=== PATIENT | female | born 1960 | race Caucasian/White ===

== ENCOUNTER → 2016-04-17 | Outpatient (CLI) | payer OTHER, BC ==
[2016-04-17 13:28] LABS: BLOOD UREA NITROGEN 17 mg/dL (7-22); CREATININE 0.8 mg/dL (0.50-1.20); EST GLOMERULAR FILTRATION > 60 (>60 ml/min/1.73m(2))
--- NOTE | 2016-04-20 08:58 | DI ---
MRI PELVIS SCAN WITHOUT AND WITH IV CONTRAST, 04/17/2016 1:10 PM: Clinical History: Lumbosacral plexopathy. Previous Exam: None at this facility. Technique: Axial and coronal pre and post contrast T1 weighted; axial and coronal T2 weighted fat sat urated scans. 20 mL of 0.5 mmol/mL OptiMARK was injected IV. The lumbar disc spaces at L4-5 and L5-S1 are normal. Both sciatic nerves are visualized from the sacr al region to inferior to the pelvis. No pelvic mass is identified and there is no abnormality of eith er sciatic nerve or the piriformis muscle. No enhancing lesion is identified. There are 2 small cysts arising from the left ovary and the smaller lesion measures 10 mm in diameter and the larger cyst me asures 15 mm in diameter. The uterus and right ovary are not visualized. Readin. Normal MRI scan without and with IV contrast of the lumbosacral plexus in the pelvis. 2. There is a 10 mm and a 15 mm cyst of the left ovary. The patient is status post hysterectomy. The right ovary is not visualized.
== END ==
LOC: MRI 13:07
PROVIDERS: ATTEND Neurological Surgery
DX: G54.1 Lumbosacral plexus disorders (principal); N83.202 Unspecified ovarian cyst, left side; Z01.812 Encounter for preprocedural laboratory examination
CPT/HCPCS: 72197; 82565; 84520; A9579

== ENCOUNTER → 2016-07-14 | Outpatient (CLI) | payer BC ==
[2016-07-14 17:29] LABS: EST GLOMERULAR FILTRATION > 60 (>60 ml/min/1.73m(2))
== END ==
LOC: LAB 17:03
PROVIDERS: ATTEND Neurological Surgery
DX: Z01.812 Encounter for preprocedural laboratory examination (principal); R51 Headache
CPT/HCPCS: 36415; 82565; 84520

== ENCOUNTER → 2016-07-15 | Outpatient (CLI) | payer BC, OTHER ==
--- NOTE | 2016-07-15 09:01 | DI ---
MRI BRAIN SCAN WITHOUT AND WITH IV CONTRAST, 07/15/2016 7:50 AM: Clinical History: Head pain. Previous Exam: None at this facility. Sequences: Axial and sagittal T1 pre contrast and axial and coronal post contrast; axial T2 and FLAIR . Diffusion weighted images with ADC mapping are also performed. 19 mL of ProHance (279.3 mg/mL) was injected IV. The 4th, 3rd, and lateral ventricles are of normal size, shape, position, and contour for this patien t's age. There are no focal areas of abnormally increased or decreased signal intensity within the br ain parenchyma. There is an 8 x 8 x 10 mm tumor arising from the inferior aspect of the left side of the tentorium adjacent to the left transverse sinus and posterior to the left petrous pyramid. On the noncontrast T1 weighted scans, this lesion is isointense to the brain parenchyma. It is well-defined on the T2-weighted sequence as a hypointense lesion. With contrast, this shows marked enhancement an d it represents a small meningioma. No en plaque meningioma is present. There is no mass effect or ed annette involving the left cerebellar hemisphere. No other abnormal enhancing lesion is present. There is moderate cerebral atrophy. Diffusion weighted imaging with ADC mapping is normal. There are no extra cerebral mantels or shift of the midline structures. The paranasal sinuses are normal. Readin. There is an 8 x 8 x 10 mm meningioma arising from the inferolateral margin of the left tentorium just posterior to the petrous pyramids and medial to the transverse sinus. There is no associated maia ma or mass effect involving the cerebellar hemisphere. 2. Moderate cerebral atrophy. No ischemic disease is noted. 3. Diffusion weighted imaging with ADC mapping is normal.
== END ==
LOC: MRI 07:47
PROVIDERS: ATTEND Neurological Surgery
DX: R51 Headache (principal); D32.0 Benign neoplasm of cerebral meninges; G31.89 Other specified degenerative diseases of nervous system
CPT/HCPCS: 70553

== ENCOUNTER → 2016-09-02 | Outpatient (CLI) | payer OTHER, BC ==
--- NOTE | 2016-09-03 00:11 | DI ---
MRI CERVICAL SPINE W/O CN,09/02/2016 3:55 PM: Clinical History: Neck pain Previous Exam: None at this facility. Findings: Multiplanar MR images are obtained through the cervical spine without contrast, and demonstrate anato julio alignment without fractures. Vertebral body height is preserved. The spinal cord descends normall y with normal course, caliber and signal characteristics. The posterior fossa is unremarkable. The major vascular flow voids are unremarkable. Limited evaluation of the thyroid is unremarkable. Individual intervertebral disc spaces: C2/3: Small broad-based disc bulge without significant stenosis. C3/4: There is a broad-based disc bulge with uncovertebral joint osteophytes contributing to mild rig ht neuroforaminal narrowing. C4/5: There is disc desiccation and a broad-based disc bulge without significant stenosis. C5/6: There is disc desiccation and a broad-based disc bulge with some uncovertebral joint osteophyte s contributing to mild right neuroforaminal narrowing. C6/7: There is a broad-based disc bulge with some mild facet hypertrophy causing no significant centr al canal nor neural foraminal narrowing. C7/T1: No significant stenosis. Impression: C3/4: There is a broad-based disc bulge with uncovertebral joint osteophytes contributing to mild rig ht neuroforaminal narrowing. C4/5: There is disc desiccation and a broad-based disc bulge without significant stenosis. C5/6: There is disc desiccation and a broad-based disc bulge with some uncovertebral joint osteophyte s contributing to mild right neuroforaminal narrowing. C6/7: There is a broad-based disc bulge with some mild facet hypertrophy causing no significant centr al canal nor neural foraminal narrowing.
== END ==
LOC: MRI 15:51
PROVIDERS: ATTEND Neurological Surgery
DX: M54.2 Cervicalgia (principal); M47.22 Other spondylosis with radiculopathy, cervical region; M50.321 Other cervical disc degeneration at C4-C5 level; M50.122 Cervical disc disorder at C5-C6 level with radiculopathy; M50.323 Other cervical disc degeneration at C6-C7 level
CPT/HCPCS: 72141

== ENCOUNTER 2016-11-08 16:20 | Emergency (ER) | payer BC, OTHER ==
[2016-11-08] MEDS ORDERED: NORMAL SALINE 10 ML SYRINGE FLUSH IVP PRN (16:31)
[2016-11-08] MEDS ORDERED: EPINEPHrine Inj (1:1,000) 1 mg/ml amp IM ONE (16:31)
[2016-11-08] MEDS ORDERED: Sodium Chloride 0.9% 1,000 ML PRIMARY IV ONE (16:31)
[2016-11-08] MEDS ORDERED: methylPREDNISolone 125 MG/2 ML VIAL IVP ONE (16:31)
[2016-11-08] MEDS ORDERED: diphenhydrAMINE 50 MG/1 ML VIAL IVP ONE (16:32)
[2016-11-08] MEDS ORDERED: Famotidine Inj 20 MG in Normal Saline Flush 10 ML IVP ONE (16:33)
[2016-11-08 17:01] VITALS: RESP 18; TEMP 96.8
--- NOTE | 2016-11-08 17:56 | PDOC ---
Allergy Symptoms HPI - General Chief Complaint: Allergic Reaction/Anaphylaxis Stated Complaint: bee sting Date Seen by Provider: 11/08/16 Time Seen by Provider: 16:25 Source: POSITIVE: Patient, Spouse Exam Limitations: POSITIVE: No limitations Nurse's Notes Reviewed & Considered: Yes - History of Present Illness Initial Comments: 50-year-old female. 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 She states that she developed diffuse pruritus and shortly thereafter developed urticaria to her back abdomen chest and proximal extremities. She states that she had the sensation of "my stung swelling ". Patient states that she has had 2 "anaphylactic reactions "of uncertain etiology; patient states she had these episodes when she was "under stress. She has no known allergies. She states he 's been stung by bees before and has never had this problem. She denies any wheezing or shortness of breath. Body Location Affected: REPORTS: Upper Extremity (L), Upper Extremity (R), Lower Extremity (L), Lower Extremity (R), Chest, Abdomen, Back Timing: REPORTS: Abrupt Duration: 1 hour Severity: Moderate Quality: REPORTS: Other (Patient denies any discrete pain, although she does complain of diffuse itching) Associated Symptoms: REPORTS: Skin Rash (Urticaria to torso and proximal extremities), Itching, Swelling ("My tongue feels swollen "). DENIES: Mild Shortness of Breath, Mod. Shortness of Breath, Sev. 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 DIRECTOR Any Prior Injuries Related to Current Complaint?: No - Patient Home Medications Home Medications: Home Medications Estradiol 1 tab PO DAILY #90 tab 06/18/16 Levothyroxine Sodium [Synthroid] 175 mcg PO DAILY #90 tab 06/18/16 Diphenhydramine HCl [Benadryl Allergy] 25 mg PO PRN 11/08/16 - Patient Allergies Allergies/Adverse Reactions: Allergies Allergy/AdvReac Type Severity Reaction Status Date / Time No Known Allergies Allergy Verified 11/08/16 16:29 Past Medical History - heen HEENT History: Denies History Cardiovascular History: Denies History Respiratory History: Denies History Gastrointestinal History: Denies History Genitourinary History: Denies History Endocrine History: Denies History Musculoskeletal History: Back Injury Prosthesis or Implant: No Neurological History: Motion Sickness Blood Disorders: Denies History Psychiatric History: Denies History History of Sexually Transmitted Diseases: No Female Reproductive History: Denies History, Hysterectomy Cancer History: Other (please comment) Cancer Treatment / Date(s) of Treatment: 2004 In Past Year Been Physically Harmed or Verbally Threatened: No History of MDRO: No History of Other Communicable Diseases: No Tobacco Use: Never Smoker Alcohol Use: Rarely Substance Use Type: None Past Medical History Reviewed: Reviewed - No Changes ROS - Limitations ROS Limitations: No Limitations Constitution: REPORTS: Denies Symptoms Cardiovascular: REPORTS: Denies Cardiac Symptoms Respiratory: REPORTS: Denies Resp Symptoms Neurological: REPORTS: Denies Neuro Symptoms Gastrointestinal: REPORTS: Denies GI Symptoms Endocrine: REPORTS: Denies Symptoms Musculoskeletal: REPORTS: Denies MS Symptoms Genitourinary: REPORTS: Denies Symptoms Eyes: REPORTS: Denies Symptoms ENT: REPORTS: Tongue Swelling Skin: REPORTS: Skin Lesions (Urticaria to chest back abdomen and proximal extremities) Lympathic: REPORTS: Denies Lympathic Symptoms Immunologic: POSITIVE: Denies Symptoms Psychiatric: POSITIVE: Denies Psych Symptoms Allergy Symptoms Physical Exam - General Appearance General Appearance: POSITIVE: Alert, Cooperative, No Acute Distress, No Evidence of Trauma - HEENT Head / Face: POSITIVE: Atraumatic, Normal Inspection, No Facial Swelling Eyes: POSITIVE: Inspection Normal, PERRL, EOM's Intact, Eyelids Uninjured, Conjunctivae Uninjured, No Nystagmus, No Globe Trauma, Sclera Normal, Normal Corneal Inspection Ears: POSITIVE: Ears Normal Inspection, TM Normal Inspection, Auricle Normal, External Canal Normal Nose: POSITIVE: Inspection Normal, No Apparent Trauma, Nares Normal, No CSF Leak Oropharynx: POSITIVE: External Inspection Nml, Pharynx Inspect. Nml (No apparent swelling of the throat), Airway Intact (No difficulty breathing), Voice Normal, Moist Mucous Membranes, No Oral Injury, Lips Normal, Gums Normal, No Drooling, No Thrush, Normal Gag Reflex, Other (Patient states she feels like her "tongue is swelling", but tongue is not grossly swollen on examination) Dental: POSITIVE: No Dental Injury - Pupils Pupil Size: 3 mm: Bilateral (PERRLA) - Neck Neck: POSITIVE: Normal Inspection, No Apparent Injury - Respiratory Respiratory: POSITIVE: No Respiratory Distress, Breath Sounds Normal, Other (No wheezing or respiratory distress) - Cardiovascular Cardiovascular: POSITIVE: Regular Rate and Rhythm, Heart Sounds Normal, Equal Pulses, Strong Pulses Peripheral Pulses: Radial (R): 2+, Radial (L): 2+ - Abdomen Abdomen: Soft: (All Quadrants), Normal Bowel Sounds: (All Quadrants), Denies Tenderness: (All Quadrants), No Splenomegaly: (All Quadrants), No Hepatomegaly: (All Quadrants), No Guarding: (All Quadrants), No Rebound: (All Quadrants), No Palpable Pulse: (All Quadrants), No Palpabale Mass: (All Quadrants), No Distention: (All Quadrants), No Rigidity: (All Quadrants) - Skin Skin: POSITIVE: Other (Diffuse urticaria to torso and proximal extremities) - Extremities Extremity: Non-Tender: (All Extremities), Normal ROM: (All Extremities), Normal Inspection: (All Extremities) Additional Extremities Details: Prominent erythema around sting site, local histamine reaction, left posterior calf. 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 Patient has much less pruritus. Chest remains clear and patient is in no respiratory distress. No swelling of the throat. Status: POSITIVE: Improved, Re-Examined - Consult Counseled: POSITIVE: Patient, Family ( sent to the pharmacy for an EpiPen injector) - Syncope If Syncope - Was EKG Completed: No Patient Care Time - Estimated PCT Patient Care Time (In Minutes): 60 Vital Signs - Recent Vital Signs Vital Signs: Vital Signs (Last 8 hours) Temp Pulse Resp BP Pulse Ox 11/08/16 16:51 96.8 F 88 18 127/91 90 - VS Reviewed Vital Signs Reviewed: Yes Discharge Clinical Impression: Allergic urticaria Discharge Disposition: Other (Care transferred to Dr. Tim, who comes on duty at 1800) Condition: Fair Patient Instructions Given at Discharge: Urticaria (ED), Allergies (ED)
--- NOTE | 2016-11-08 18:41 | PDOC ---
Transfer of Care - Care Accepted Time Care Transferred: 18:00 Report from Transferring Physician Received: Yes MDM / ED Course: Patient received benadryl, solumedrol, epinephrine, and pepcid. Her hives responded quickly and resolve, the swelling in her tounge and throat were slower to resolve. At the time I took over care at 1800 hrs her symptoms had resolved. She was observed for another hour and had no further symptoms. Home Medications: Home Medications Estradiol 1 tab PO DAILY #90 tab 06/18/16 Levothyroxine Sodium [Synthroid] 175 mcg PO DAILY #90 tab 06/18/16 Diphenhydramine HCl [Benadryl Allergy] 25 mg PO PRN 11/08/16 Allergies/Adverse Reactions: Allergies No Known Allergies Allergy (Verified 11/08/16 16:29) Vital Signs Reviewed: Yes Nurse's Notes Reviewed & Considered: Yes - Expected Patient Outcome Tentative Impression of Patient: Wasp sting allergy. Expected Disposition: POSITIVE: Home - Re-Evaluation of Patient Re-Examine Time:: 18:40 Disposition of Patient: POSITIVE: Discharged Counseled: POSITIVE: Patient, RE: DX, RE: Need for F/U Patient Care Time - Estimated PCT Patient Care Time (In Minutes): 10 Vital Signs - Recent Vital Signs Vital Signs: Vital Signs (Last 8 hours) Temp Pulse Resp BP Pulse Ox 11/08/16 16:51 96.8 F 88 18 127/91 90 - VS Reviewed Vital Signs Reviewed: Yes Discharge Clinical Impression: Allergic urticaria Discharge Disposition: Discharged to Home Condition: Fair Patient Instructions Given at Discharge: Urticaria (ED), Allergies (ED) Follow Up With: NONE,NONE [Primary Care Provider] -
== END 2016-11-08 18:59 | disposition home or self-care (01) ==
LOC: ER 16:20
DX: L50.0 Allergic urticaria (principal); L50.9 Urticaria, unspecified; T63.441A Toxic effect of venom of bees, accidental (unintentional), initial encounter
CPT/HCPCS: 96372; 96374; 96375; 99283 ×2; J0171; J1200; J2930; S0028; J7030